=== PATIENT | female | born 1950 | race Caucasian/White ===

== ENCOUNTER 2021-03-21 21:22 | Emergency (ER) | payer OTHER ==
[~2021-03-21] VITALS: Ht 149.9 cm; Wt 86.2 kg
[~2021-03-21 21:22] MED LIST: ACET325 PO; AMITRIPTYLINE100 M2 PO; AMLO5 PO; ASPI81CH PO; ASPI81EC PO; ATEN50 PO; AZIT500 PO; Aspir 8181 MG PO; CEPH500 PO; Cipro250 MG PO; DULO30 PO; Dyazide 37.5/251 EA PO; ENAL10 PO; GABA400 PO; HYDACE5 PO; HYDACE5325 PO; IBUP200; IBUP800 PO; IRBE150 PO; LEVOTHYROXINE200 MCG PO; LEVOXYL PO; LIOT5 PO; MELO7.5 PO; NAPR500 PO; OXYC10TA19 PO; OXYC5 PO; PANT40 PO; PRAM.5 PO; PRED20 PO; Prozac20 MG PO; RAMI5 PO; RXHYD5325 PO; SULTRIDS PO; SYNTHROID; Seroquel Xr50 MG PO; TRAM50 PO; TRIHYD253A PO; VITAMIN D325 MC3 PO; WARF4 PO; WARF5 PO; WARF6 PO; ZOCOR20 MG PO
[2021-03-21 21:45] LABS: BASOPHILS ABSOLUTE AUTO 0.03 K/mm3 (0.00-0.23); BASOPHILS PERCENT AUTO 0 % (0-2); EOSINOPHILS ABSOLUTE AUTO 0.44 K/mm3 (0.00-0.68); EOSINOPHILS PERCENT AUTO 4 % (0-6); Hematocrit 30.2 % (33.0-51.0); Hemoglobin 9.6 g/dL (11.5-16.0); IMMATURE GRAN ABSOLUTE AUTO 0.07 K/mm3 (0.00-0.10); IMMATURE GRAN PERCENT AUTO 1 % (0-1); LYMPHOCYTES ABSOLUTE AUTO 2.35 K/mm3 (0.84-5.20); LYMPHOCYTES PERCENT AUTO 22 % (21-46); MONOCYTES ABSOLUTE AUTO 0.73 K/mm3 (0.16-1.47); MONOCYTES PERCENT AUTO 7 % (4-13); Mean Corpuscular HGB 29.8 pg (26.0-34.0); Mean Corpuscular HGB Conc 31.8 g/dL (31.5-36.5); Mean Corpuscular Volume 94 fL (80-100); Mean Platelet Volume 10.1 fL (9.1-12.4); NEUTROPHILS ABSOLUTE AUTO 7.29 K/mm3 (1.96-9.15); NEUTROPHILS PERCENT AUTO 67 % (41-73); Platelet Count 201 K/mm3 (150-400); RDW Coefficient Variation 16.2 % (11.7-14.2); RDW Standard Deviation 55.8 fL (35.1-46.3); Red Blood Cell Count 3.22 M/mm3 (3.80-5.20); White Blood Cell Count 10.91 K/mm3 (4.00-11.30)
[2021-03-21 22:03] LABS: Alanine Aminotransfer (ALT/SGP 23 U/L (12-78); Albumin, Blood 2.5 g/dL (3.4-5.0); Albumin/Globulin Ratio 0.7 (0.8-1.8); Alk Phos 61 U/L (50-136); Anion Gap 6 mmol/L (6-16); Aspartate Aminotrans (AST/SGOT 15 U/L (12-37); Bilirubin, Total 0.3 mg/dL (0.1-1.0); Blood Urea Nitrogen 18 mg/dL (8-24); Bun/Creatinine Ratio 16.1 (12.0-20.0); CO2, Blood 27 mmol/L (21-32); Calcium, Blood 8.6 mg/dL (8.5-10.1); Chloride, Blood 109 mmol/L (98-108); Creatinine, Blood 1.12 mg/dL (0.40-1.00); Globulin, Blood 3.5 g/dL (2.2-4.0); Glomerular Filtration Rate 48 (60-); Glucose, Blood 138 mg/dL (70-99); Potassium, Blood 3.8 mmol/L (3.5-5.5); Sodium, Blood 142 mmol/L (136-145)
[2021-03-22 00:15] LABS: Troponin I <0.015 ng/mL (0.000-0.040)
[2021-03-22] MEDS ORDERED: POTCHL20ER PO (00:57)
[2021-03-22] MEDS ORDERED: LASIX20 M2 PO (00:57)
== END 2021-03-22 01:40 | disposition home or self-care (01) ==
LOC: ER 21:22
PROVIDERS: Emergency Medicine
DX: R60.0 Localized edema (principal); Z79.899 Other long term (current) drug therapy
CPT/HCPCS: 36415; 71045; 80053; 83880; 84484; 85025; 93005; 93010

== ENCOUNTER → 2021-03-24 | Outpatient (CLI) | payer OTHER ==
[~2021-03-24] MED LIST changes: +LASIX20 M2 PO; +POTCHL20ER PO
[2021-03-24 14:21] LABS: Creatinine Urine 83.7 mg/dL (27.00-270.00); Protein, Urine Quantitative 13.9 mg/dL (0.0-11.9)
== END | disposition home or self-care (01) ==
LOC: LAB SHORT 09:00 → LAB 09:00 → LAB FUT 03-20 09:05
PROVIDERS: Internal Medicine Nephrology
DX: N18.30 Chronic kidney disease, stage 3 unspecified (principal); D63.1 Anemia in chronic kidney disease; N25.81 Secondary hyperparathyroidism of renal origin; E55.9 Vitamin D deficiency, unspecified; E78.00 Pure hypercholesterolemia, unspecified; G60.9 Hereditary and idiopathic neuropathy, unspecified; R76.9 Abnormal immunological finding in serum, unspecified; R94.5 Abnormal results of liver function studies
CPT/HCPCS: 81050; 82570; 84156

== ENCOUNTER 2022-05-06 09:27 | Observation (INO) | payer OTHER ==
[~2022-05-06] VITALS: Ht 147.3 cm; Wt 97.5 kg
[2022-05-06 10:07] LABS: BASOPHILS ABSOLUTE AUTO 0.03 K/mm3 (0.00-0.23); BASOPHILS PERCENT AUTO 0 % (0-2); EOSINOPHILS PERCENT AUTO 1 % (0-6); Hematocrit 41.9 % (33.0-51.0); Hemoglobin 14.2 g/dL (11.5-16.0); IMMATURE GRAN ABSOLUTE AUTO 0.06 K/mm3 (0.00-0.10); IMMATURE GRAN PERCENT AUTO 1 % (0-1); LYMPHOCYTES PERCENT AUTO 27 % (21-46); MONOCYTES ABSOLUTE AUTO 0.83 K/mm3 (0.16-1.47); MONOCYTES PERCENT AUTO 9 % (4-13); Mean Corpuscular HGB Conc 33.9 g/dL (31.5-36.5); Mean Corpuscular Volume 94 fL (80-100); Mean Platelet Volume 9.7 fL (9.1-12.4); NEUTROPHILS PERCENT AUTO 63 % (41-73); Platelet Count 164 K/mm3 (150-400); RDW Coefficient Variation 15.4 % (11.7-14.2); RDW Standard Deviation 53.3 fL (35.1-46.3); Red Blood Cell Count 4.44 M/mm3 (3.80-5.20); White Blood Cell Count 9.72 K/mm3 (4.00-11.30)
[2022-05-06 10:25] LABS: Albumin, Blood 3.7 g/dL (3.4-5.0); Albumin/Globulin Ratio 1.1 (0.8-1.8); Bilirubin, Total 0.6 mg/dL (0.1-1.0); Bun/Creatinine Ratio 29.7 (12.0-20.0); Calcium, Blood 9.2 mg/dL (8.5-10.1); Creatinine, Blood 0.98 mg/dL (0.40-1.00); Globulin, Blood 3.5 g/dL (2.2-4.0); Potassium, Blood 4.1 mmol/L (3.5-5.5); Total Protein, Blood 7.2 g/dL (6.4-8.2)
[2022-05-06 13:41] LABS: CHOL/HDL RATIO 4.3; Cholesterol 230 mg/dL (50-200); HDL Cholesterol 53 mg/dL (>39); LDL/HDL RATIO 2.8; Low Density Lipoprotein Chol 146 mg/dL (0-110); Triglycerides 153 mg/dL (30-160); Very Low Density Lipoprot Chol 30 mg/dL (6-32)
[2022-05-06] MEDS ORDERED: ASPI81CH PO (16:36)
--- NOTE | 2022-05-06 18:26 | NUR ---
SHIFT SUMMARY PTN ADMIT FROM ER FOR ACUTE CVA. 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 PTN HAD ECHO OF HEART DONE AFTER ARRIVING TO THE UNIT, WITH PLANS FOR CORATID STUDY TOMORROW. PTN HERE FOR OBSERVATION AND ON TELEMETRY. TWO SONS PRESENT IN ROOM. PTN DENIES DIAGNOSIS OF GERD AND REFUSED PANTOPRAZOLE. PTN INDEPENDENT IN ROOM. CONTINUE TO MONITOR.
--- NOTE | 2022-05-07 06:55 | NUR ---
CHAPARRO WAS AWAKE ALL NIGHT. SHE SAYS SHE HAS BEEN HAVING THIS PROBLEM SINCE HER SPOUSE OF ALMOST 50 YEARS JUST MONTHS AGO. SHE TRIED TRAZODONE 50 MG LAST NIGHT, AND IT DID NOTHING. THIS MORNING, SHE STATED SHE REMEMBERED THAT SHE HAD TAKEN AMYTRYPTILLINE AT , AND IT HAD WORKED. HOPING TO GET AN RX OR ORDER FOR TONIGHT AND POSSIBLY DISCHARGE.
--- NOTE | 2022-05-07 10:46 | NUR ---
RN NOTE MS PLATT IS ALERT, OX4. UP INDEPENDENTLY TO BR. SLIGHT LEFT FACIAL DROOP, NO OTHER DEFICITS NOTED. C/O CHRONIC HEADACHE, NOW 07/21. DISCUSSED WITH DR PAREDES THIS AM ON ROUNDS, ALSO DISCUSSED OVER USE OF HOME TYLENOL. PT NOW SAID SHE UNDERSTANDS MAXIMUM DAILY TYLENOL DOSE. PT SAID SHE HAS A APPOINTMENT SET UP WITH A NEW PCP IN EITHER MAY OR JUNE. BED LOW, CALL LIGHT IN REACH.
--- NOTE | 2022-05-07 11:34 | NUR ---
RN NOTE WALKED IN HALLS. STEADY GAIT, NO WALKER OR ASSISTANCE NEEDED. SHE STRUGGLED A LITTLE GETTING OUT OF BED WITHOUT ASSISTANCE, BUT MOVING WELL ONCE UP.
[2022-05-07] MEDS ORDERED: AMIT50 PO (12:09)
[2022-05-07] MEDS ORDERED: ATOR80 PO (12:09)
[2022-05-07] MEDS ORDERED: SUMA25 PO (12:10)
--- NOTE | 2022-05-07 13:39 | NUR ---
RN NOTE PT DISCHARGED WITH HER DAUGHTER IN LAW AT 1300HRS. THEY VERBALISED UNDERSTANDING OF WRITTEN AND VERBAL DISCHARGE INSTRUCTIONS. PIV REMOVED INTACT AND TELEMETRY REMOVED PRIOR TO D/C. WHEELCHAIR ESCORT TO RIDE. NO CHANGE FROM PRIOR ASSESSMENET EXCEPT HEADACHE DID DECREASE TO 2/10 AFTER TAKING TYLENOL.
== END 2022-05-07 14:59 | disposition home or self-care (01) ==
LOC: ER 09:27 → MEDS 09:28
PROVIDERS: Nurse Practitioner Acute Care; Student in an Organized Health Care Education/Training Program; ADMIT Family Medicine
DX: I63.9 Cerebral infarction, unspecified (principal); E03.9 Hypothyroidism, unspecified; K21.9 Gastro-esophageal reflux disease without esophagitis
CPT/HCPCS: 36415; 70450; 80053; 80061; 83036; 84484; 85025; 93005; 93010; 93306; 93880; 96372; 99285-25; A9270; G0378; J1650

== ENCOUNTER 2022-06-22 09:52 | Inpatient (IN) | payer OTHER ==
[~2022-06-22] VITALS: Ht 147.3 cm; Wt 99.5 kg
[~2022-06-22 09:52] MED LIST changes: +AMIT50 PO; +ATOR80 PO; +SUMA25 PO
[2022-06-22 10:50] LABS: Source, Urine Straight Cath
[2022-06-22 10:54] LABS: Appearance, Urine Cloudy (Clear); Bilirubin, Urine Neg (Neg); Blood, Urine 3+ (Neg); Color, Urine Yellow (P-Yellow); Glucose Qualitative, Urine Neg (Neg); Ketones, Urine 2+ (Neg); Leukocyte Esterase, Urine 3+ (Neg); Nitrite, Urine Neg (Neg); Protein, Urine 2+ (Neg); Specific Gravity, Urine 1.025 (1.003-1.022); Urobilinogen, Urine NORM (Normal)
[2022-06-22 11:01] LABS: Bacteria Many /hpf; Mucus Heavy (0-Heavy); Squamous Epithelial Cells Mod /hpf (Few); White Blood Cells, Urine 50-100 /hpf (0-5)
[2022-06-22 11:05] LABS: BASOPHILS ABSOLUTE AUTO 0.06 K/mm3 (0.00-0.23); BASOPHILS PERCENT AUTO 0 % (0-2); EOSINOPHILS PERCENT AUTO 0 % (0-6); Hematocrit 44.4 % (33.0-51.0); Hemoglobin 15.3 g/dL (11.5-16.0); IMMATURE GRAN ABSOLUTE AUTO 0.22 K/mm3 (0.00-0.10); IMMATURE GRAN PERCENT AUTO 1 % (0-1); LYMPHOCYTES ABSOLUTE AUTO 1.86 K/mm3 (0.84-5.20); LYMPHOCYTES PERCENT AUTO 7 % (21-46); MONOCYTES ABSOLUTE AUTO 1.46 K/mm3 (0.16-1.47); MONOCYTES PERCENT AUTO 6 % (4-13); Mean Corpuscular HGB 30.7 pg (26.0-34.0); Mean Corpuscular HGB Conc 34.5 g/dL (31.5-36.5); Mean Corpuscular Volume 89 fL (80-100); Mean Platelet Volume 9.7 fL (9.1-12.4); NEUTROPHILS ABSOLUTE AUTO 23.02 K/mm3 (1.96-9.15); NEUTROPHILS PERCENT AUTO 87 % (41-73); Platelet Count 208 K/mm3 (150-400); RDW Coefficient Variation 13.3 % (11.7-14.2); RDW Standard Deviation 43.5 fL (35.1-46.3); Red Blood Cell Count 4.99 M/mm3 (3.80-5.20); White Blood Cell Count 26.62 K/mm3 (4.00-11.30)
[2022-06-22 11:40] LABS: Magnesium, Blood 1.8 mg/dL (1.6-2.4)
[2022-06-22 11:57] LABS: Albumin, Blood 3.6 g/dL (3.4-5.0); Albumin/Globulin Ratio 0.9 (0.8-1.8); Bun/Creatinine Ratio 30.4 (12.0-20.0); Calcium, Blood 9.9 mg/dL (8.5-10.1); Creatinine, Blood 0.99 mg/dL (0.40-1.00); Potassium, Blood 3.6 mmol/L (3.5-5.5); Total Protein, Blood 7.6 g/dL (6.4-8.2)
[2022-06-22 12:56] LABS: Creatine Kinase MB 5.7 ng/mL (0.0-3.6); Creatine Kinase MB Index 0.5 (0.0-4.0)
[2022-06-22 16:14] LABS: Source, Urine Straight Cath
[2022-06-22 16:46] LABS: Appearance, Urine Hazy (Clear); Bilirubin, Urine Neg (Neg); Blood, Urine 2+ (Neg); Color, Urine Yellow (P-Yellow); Glucose Qualitative, Urine Neg (Neg); Ketones, Urine 1+ (Neg); Leukocyte Esterase, Urine 2+ (Neg); Nitrite, Urine Pos (Neg); Protein, Urine 2+ (Neg); Urobilinogen, Urine NORM (Normal)
[2022-06-22 16:52] LABS: U Amphetamine Screen Not Detected; U Barbituate Screen Not Detected; U Benzodiazapine Screen Not Detected; U Buprenorphine Screen Not Detected; U Cannabinoids Screen Not Detected; U Cocaine Screen Not Detected; U Methadone Screen Not Detected; U Methamphetamine Screen Not Detected; U Opiates Screen Not Detected; U Oxycodone Screen Not Detected; U Phencyclidine Screen Not Detected; U Propoxyphene Screen Not Detected
[2022-06-22 17:00] LABS: White Blood Cells, Urine 25-50 /hpf (0-5)
[2022-06-22 17:01] LABS: Bacteria Many /hpf; Squamous Epithelial Cells Rare /hpf (Few)
[2022-06-22 18:07] VITALS: BP 118/66
[2022-06-22 20:17] VITALS: BP 148/94
[2022-06-23 04:38] VITALS: BP 143/90
[2022-06-23 05:02] LABS: BASOPHILS ABSOLUTE AUTO 0.04 K/mm3 (0.00-0.23); BASOPHILS PERCENT AUTO 0 % (0-2); EOSINOPHILS ABSOLUTE AUTO 0.08 K/mm3 (0.00-0.68); EOSINOPHILS PERCENT AUTO 0 % (0-6); Hematocrit 36.9 % (33.0-51.0); Hemoglobin 12.5 g/dL (11.5-16.0); IMMATURE GRAN ABSOLUTE AUTO 0.23 K/mm3 (0.00-0.10); IMMATURE GRAN PERCENT AUTO 1 % (0-1); LYMPHOCYTES ABSOLUTE AUTO 3.94 K/mm3 (0.84-5.20); LYMPHOCYTES PERCENT AUTO 18 % (21-46); MONOCYTES ABSOLUTE AUTO 1.56 K/mm3 (0.16-1.47); MONOCYTES PERCENT AUTO 7 % (4-13); Mean Corpuscular HGB 30.8 pg (26.0-34.0); Mean Corpuscular HGB Conc 33.9 g/dL (31.5-36.5); Mean Corpuscular Volume 91 fL (80-100); Mean Platelet Volume 10.1 fL (9.1-12.4); NEUTROPHILS ABSOLUTE AUTO 15.97 K/mm3 (1.96-9.15); NEUTROPHILS PERCENT AUTO 73 % (41-73); Platelet Count 181 K/mm3 (150-400); RDW Coefficient Variation 13.4 % (11.7-14.2); RDW Standard Deviation 45.4 fL (35.1-46.3); Red Blood Cell Count 4.06 M/mm3 (3.80-5.20); White Blood Cell Count 21.82 K/mm3 (4.00-11.30)
[2022-06-23 05:18] LABS: Albumin, Blood 2.8 g/dL (3.4-5.0); Albumin/Globulin Ratio 0.8 (0.8-1.8); Bilirubin, Total 0.6 mg/dL (0.1-1.0); Bun/Creatinine Ratio 28.1 (12.0-20.0); Calcium, Blood 8.8 mg/dL (8.5-10.1); Creatinine, Blood 1.14 mg/dL (0.40-1.00); Globulin, Blood 3.3 g/dL (2.2-4.0); Potassium, Blood 3.6 mmol/L (3.5-5.5); Total Protein, Blood 6.1 g/dL (6.4-8.2)
[2022-06-23 07:25] VITALS: BP 121/74
[2022-06-23 16:45] VITALS: BP 117/65
--- NOTE | 2022-06-23 17:23 | NUR ---
SHIFT SUMMARY PT AXO, PLEASANT AND COOPERATIVE WITH CARE. PT UP TO CHAIR WITH MEALS. PT COMPLAINS OF PAIN IN RIGHT SHOULDER WHICH LIMITS HER MOBILITY. PT PROTECTING WITH MOVEMENT. VSS. UP WITH 1 ASSIST WITH FWW AND GB. NO ACUTE CHANGES THIS SHIFT. PT ON RA.
[2022-06-23 19:42] VITALS: BP 101/58
[2022-06-24 04:55] VITALS: BP 116/71
--- NOTE | 2022-06-24 04:59 | NUR ---
AO, CALLS APPROPRIATELY, TYLENOL GIVEN PRN FOR R ARM/HEADACHE PAINS. TOLERATING THIN LIQUIDS WITH NO STRAW. IMPROVED TOLERANCE TO ACTIVITY THIS SHIFT THAN PREVIOUS SHIFTS. OCCASIONAL PRODUCTIVE COUGH. ON TELE, STABLE BUT TACHYCARDIC WITH ACTIVITY.
[2022-06-24 07:21] VITALS: BP 121/70
[2022-06-24] MEDS ORDERED: VISBIOME 112.51 EACH PO (14:42)
[2022-06-24] MEDS ORDERED: LEVFLO500 PO (14:42)
[2022-06-24] MEDS ORDERED: METO25 PO (14:42)
[2022-06-24 14:51] LABS: SARS-Cov-2 (COVID-19) Antigen Negative (NEGATIVE)
--- NOTE | 2022-06-24 16:15 | NUR ---
DISCHARGE PT A&OX4, PT REPORT CALLED INTO NURSE AT [facility]. PT SON PROVIDED TRANSPORT. IV DC'ED, TELE DC'ED. VSS. TOLERATING PO INTAKE WELL. SBA W/ FWW.
== END 2022-06-24 15:33 | DRG 871 ==
LOC: ER 09:52 → MEDS 15:21 → ENPENDDIS 06-24 13:55 → MEDS 06-24 15:33
PROVIDERS: Student in an Organized Health Care Education/Training Program; ADMIT Internal Medicine
DX: A41.4 Sepsis due to anaerobes (principal); G93.41 Metabolic encephalopathy; E87.20 Acidosis, unspecified; I69.354 Hemiplegia and hemiparesis following cerebral infarction affecting left non-dominant side; N39.0 Urinary tract infection, site not specified; N17.9 Acute kidney failure, unspecified; Z20.822 Contact with and (suspected) exposure to COVID-19; R65.20 Severe sepsis without septic shock; A41.51 Sepsis due to Escherichia coli [E. coli]; E03.9 Hypothyroidism, unspecified; E78.00 Pure hypercholesterolemia, unspecified; R31.9 Hematuria, unspecified; S00.11XA Contusion of right eyelid and periocular area, initial encounter; S00.33XA Contusion of nose, initial encounter; G43.909 Migraine, unspecified, not intractable, without status migrainosus; I12.9 Hypertensive chronic kidney disease with stage 1 through stage 4 chronic kidney disease, or unspecified chronic kidney disease; N18.31 Chronic kidney disease, stage 3a; R29.6 Repeated falls; Z86.711 Personal history of pulmonary embolism; Z86.718 Personal history of other venous thrombosis and embolism; Z90.49 Acquired absence of other specified parts of digestive tract; Z90.710 Acquired absence of both cervix and uterus; I69.391 Dysphagia following cerebral infarction; R13.10 Dysphagia, unspecified; Z87.442 Personal history of urinary calculi; Z79.82 Long term (current) use of aspirin; Z79.890 Hormone replacement therapy; Z79.899 Other long term (current) drug therapy; W18.39XA Other fall on same level, initial encounter; Y92.009 Unspecified place in unspecified non-institutional (private) residence as the place of occurrence of the external cause
CPT/HCPCS: 36415; 70450; 71046; 72125; 73010; 73522; 80053; 81001; 82550; 82553; 83605; 83735; 85025; 87040; 87077; 87086; 87186; 87426; 92526; 92610; 93005; 93010; 94760; 96361-59; 96365-59; 97116; 97162; 97166; 97530; 97535; 99285-25; A9270; C9803; J0696; J1650; J7030; P9612

== ENCOUNTER 2022-12-27 20:20 | Emergency (ER) | payer OTHER ==
[~2022-12-27] VITALS: Ht 147.3 cm; Wt 98.9 kg
[~2022-12-27 20:20] MED LIST changes: +BUTALB-ACETAMI1 EAC5 PO; +COQ-10100 MG PO; +ELIQUIS5 M2 PO; +FLUT.05NI; +FLUTICASONE-SA1 EA10 IH; +LEVFLO500 PO; +METO25 PO; +MONT10T PO; +Suphedrine30 MG PO; +TOPI50 PO; +VISBIOME 112.51 EACH PO
[2022-12-27 20:47] LABS: BASOPHILS ABSOLUTE AUTO 0.01 K/mm3 (0.00-0.23); BASOPHILS PERCENT AUTO 0 % (0-2); EOSINOPHILS ABSOLUTE AUTO 0.04 K/mm3 (0.00-0.68); EOSINOPHILS PERCENT AUTO 1 % (0-6); Hematocrit 32.5 % (33.0-51.0); Hemoglobin 10.7 g/dL (11.5-16.0); IMMATURE GRAN ABSOLUTE AUTO 0.03 K/mm3 (0.00-0.10); IMMATURE GRAN PERCENT AUTO 0 % (0-1); LYMPHOCYTES ABSOLUTE AUTO 0.91 K/mm3 (0.84-5.20); LYMPHOCYTES PERCENT AUTO 13 % (21-46); MONOCYTES ABSOLUTE AUTO 0.25 K/mm3 (0.16-1.47); MONOCYTES PERCENT AUTO 4 % (4-13); Mean Corpuscular HGB 31.8 pg (26.0-34.0); Mean Corpuscular HGB Conc 32.9 g/dL (31.5-36.5); Mean Corpuscular Volume 97 fL (80-100); Mean Platelet Volume 9.8 fL (9.1-12.4); NEUTROPHILS ABSOLUTE AUTO 5.92 K/mm3 (1.96-9.15); NEUTROPHILS PERCENT AUTO 83 % (41-73); Platelet Count 100 K/mm3 (150-400); RDW Coefficient Variation 14.9 % (11.7-14.2); Red Blood Cell Count 3.36 M/mm3 (3.80-5.20); White Blood Cell Count 7.16 K/mm3 (4.00-11.30)
[2022-12-27] MEDS ORDERED: AMIT50 (20:49)
[2022-12-27] MEDS ORDERED: METOPROLOL TART25 MG PO (20:49)
[2022-12-27 21:04] LABS: Albumin, Blood 3.2 g/dL (3.4-5.0); Albumin/Globulin Ratio 1.1 (0.8-1.8); Bilirubin, Total 0.6 mg/dL (0.1-1.0); Calcium, Blood 8.7 mg/dL (8.5-10.1); Potassium, Blood 4.1 mmol/L (3.5-5.5); Total Protein, Blood 6.2 g/dL (6.4-8.2)
[2022-12-27 23:02] LABS: Source, Urine Clean Catch
[2022-12-27 23:04] LABS: Bilirubin, Urine Neg (Neg); Blood, Urine 2+ (Neg); Glucose Qualitative, Urine Neg (Neg); Ketones, Urine Neg (Neg); Leukocyte Esterase, Urine 2+ (Neg); Nitrite, Urine Pos (Neg); Protein, Urine 2+ (Neg); Urobilinogen, Urine NORM (Normal)
[2022-12-27 23:09] LABS: Appearance, Urine Hazy (Clear); Color, Urine Yellow (P-Yellow)
[2022-12-27 23:12] LABS: Bacteria Many /hpf; Squamous Epithelial Cells Many /hpf (Few); White Blood Cells, Urine 25-50 /hpf (0-5)
[2022-12-27 23:36] LABS: Thyroid Stimulating Hormone 0.917 uIU/mL (0.360-4.800)
[2022-12-27 23:45] LABS: Influenza A, PCR NEGATIVE (NEGATIVE); Influenza B, PCR NEGATIVE (NEGATIVE); Resp Syncytial Virus, PCR NEGATIVE (NEGATIVE); SARS-Cov-2 (COVID-19) PCR, MMC NEGATIVE (NEGATIVE)
[2022-12-28 02:00] VITALS: BP 114/60
[2022-12-28] MEDS ORDERED: CEPH500 PO (02:01)
== END 2022-12-28 02:41 | disposition home or self-care (01) ==
LOC: ER 20:20
PROVIDERS: Emergency Medicine
DX: N39.0 Urinary tract infection, site not specified (principal); R00.0 Tachycardia, unspecified; Z20.822 Contact with and (suspected) exposure to COVID-19; I10 Essential (primary) hypertension; E78.00 Pure hypercholesterolemia, unspecified; E03.9 Hypothyroidism, unspecified; Z86.73 Personal history of transient ischemic attack (TIA), and cerebral infarction without residual deficits; Z79.890 Hormone replacement therapy; Z79.899 Other long term (current) drug therapy
CPT/HCPCS: 0241U; 71046; 80053; 81001; 83605; 84443; 85025; 87077; 87086; 87186; 93005; 93010; 96374; 99284-25; J0696; J7030

== ENCOUNTER → 2023-01-18 | Outpatient (CLI) | payer OTHER ==
[~2023-01-18] MED LIST changes: +AMIT50; +METOPROLOL TART25 MG PO
== END ==
LOC: LAB 10:40 → LAB SHORT 10:40
DX: N39.0 Urinary tract infection, site not specified (principal)
CPT/HCPCS: 87077; 87086; 87186

== ENCOUNTER 2023-03-04 17:07 | Emergency (ER) | payer OTHER ==
[~2023-03-04] VITALS: Ht 147.3 cm; Wt 102.1 kg
[2023-03-04 17:13] VITALS: BP 141/91
== END 2023-03-04 19:54 | disposition home or self-care (01) ==
LOC: ER 17:07
DX: S01.112A Laceration without foreign body of left eyelid and periocular area, initial encounter (principal); S09.90XA Unspecified injury of head, initial encounter; E78.00 Pure hypercholesterolemia, unspecified; E03.9 Hypothyroidism, unspecified; Z79.01 Long term (current) use of anticoagulants; Z86.73 Personal history of transient ischemic attack (TIA), and cerebral infarction without residual deficits; W01.10XA Fall on same level from slipping, tripping and stumbling with subsequent striking against unspecified object, initial encounter; Y92.008 Other place in unspecified non-institutional (private) residence as the place of occurrence of the external cause
CPT/HCPCS: 12011; 70450; 90471; 90714; 99283-25

== ENCOUNTER 2024-04-06 16:39 | Emergency (ER) | payer OTHER ==
[~2024-04-06] VITALS: Ht 142.2 cm; Wt 180.0 kg
[2024-04-06 17:38] LABS: Source, Urine Clean Catch
[2024-04-06 17:41] LABS: Appearance, Urine Cloudy (Clear); Blood, Urine 5+ (Neg); Color, Urine Yellow (P-Yellow); Glucose Qualitative, Urine Neg (Neg); Ketones, Urine Neg (Neg); Leukocyte Esterase, Urine 3+ (Neg); Nitrite, Urine Pos (Neg); Protein, Urine 2+ (Neg); Urobilinogen, Urine NORM (Normal)
[2024-04-06 17:47] LABS: Bilirubin, Urine 1+ (Neg)
[2024-04-06 17:49] LABS: Bacteria Many /hpf; Red Blood Cells, Urine 25-50 /hpf (0-2); Squamous Epithelial Cells Mod /hpf (Few); White Blood Cells, Urine TNTC /hpf (0-5)
[2024-04-06] MEDS ORDERED: LIPITOR80 MG PO (19:54)
[2024-04-06] MEDS ORDERED: CefTRIAXone Sodium 1,000 MG in NS 50 ML IV ONE (22:45)
[2024-04-06] MEDS ORDERED: CEPH500 PO ×2 (22:45→23:49)
[2024-04-06 23:30] VITALS: BP 115/75
== END 2024-04-07 | disposition home or self-care (01) ==
LOC: ER 16:39
PROVIDERS: Physician Assistant
DX: S10.93XA Contusion of unspecified part of neck, initial encounter (principal); N39.0 Urinary tract infection, site not specified; Z79.899 Other long term (current) drug therapy; E03.9 Hypothyroidism, unspecified; I10 Essential (primary) hypertension; E78.00 Pure hypercholesterolemia, unspecified; W18.30XA Fall on same level, unspecified, initial encounter
CPT/HCPCS: 70450; 74177; 81001; 87077; 87086; 87186; 96365; 99284-25; J0696; Q9967

== ENCOUNTER 2024-07-14 06:54 | Emergency (ER) | payer OTHER ==
[~2024-07-14] VITALS: Ht 167.6 cm; Wt 68.0 kg
[~2024-07-14 06:54] MED LIST changes: +LIPITOR80 MG PO
[2024-07-14 07:10] VITALS: BP 95/59
== END 2024-07-14 10:17 | disposition home or self-care (01) ==
LOC: ER 06:54
DX: T84.84XA Pain due to internal orthopedic prosthetic devices, implants and grafts, initial encounter (principal); Z79.2 Long term (current) use of antibiotics; Z79.891 Long term (current) use of opiate analgesic; Z79.01 Long term (current) use of anticoagulants
CPT/HCPCS: 93971; 99284-25

== ENCOUNTER → 2024-11-27 | Outpatient (CLI) | payer OTHER | LOC: LAB 17:48 → LAB SHORT 17:48 | DX: N39.0 Urinary tract infection, site not specified (principal) | CPT/HCPCS: 87077; 87086; 87186 ==

== ENCOUNTER → 2024-12-13 | Outpatient (CLI) | payer OTHER | END | disposition home or self-care (01) | LOC: LAB 11:05 → LAB SHORT 11:05 | DX: N39.0 Urinary tract infection, site not specified (principal) | CPT/HCPCS: 87086 ==

== ENCOUNTER → 2024-12-25 | Outpatient (CLI) | payer OTHER | LOC: LAB SHORT 15:29 → LAB 15:29 | DX: N39.0 Urinary tract infection, site not specified (principal) | CPT/HCPCS: 87086 ==